=== PATIENT | female | born 1990 | race Asian ===

== ENCOUNTER 2017-01-11 14:49 | Emergency (ER) | payer OTHER ==
[2017-01-11 15:52] VITALS: BP 113/59
--- NOTE | 2017-01-11 16:59 | UC ---
Ear Complaint HPI - HPI Summary HPI Summary: COUGH AND CONGESTION SINCE SEPTEMBER. YESTERDAY DEVELOPED FULLNESS AND PAIN IN LEFT EAR. NO FEVER. NO SORE THROAT. - History of Current Complaint Chief Complaint: UCEar Stated Complaint: EAR PAIN Time Seen by Provider: 01/11/17 15:52 Hx Obtained From: Patient Hx Last Menstrual Period: 12/28/16 Onset/Duration: Gradual Onset, Lasting Weeks, Worse Since - YESTERDAY Severity Initially: Mild Severity Currently: Mild Pain Intensity: 3 Pain Scale Used: 0-10 Numeric Associated Signs/Symptoms: Positive: URI Symptoms - Allergies/Home Medications Allergies/Adverse Reactions: Allergies Allergy/AdvReac Type Severity Reaction Status Date / Time No Known Allergies Allergy Verified 04/28/14 17:10 Home Medications: Home Medications Cholecalciferol [Vitamin D] 1,000 unit PO 01/11/17 [History] Montelukast Sodium TAB* [Singulair TAB*] 10 mg PO DAILY 01/11/17 [History Confirmed 01/11/17] PMH/Surg Hx/FS Hx/Imm Hx Previously Healthy: Yes Endocrine History Of: Denies: Diabetes, Thyroid Disease Cardiovascular History Of: Denies: Cardiac Disorders, Hypertension Respiratory History Of: Reports: Asthma - pt states maybe, Bronchitis Denies: COPD GI/ History Of: Denies: Ulcer Psychological History Of: Reports: Depression - Surgical History Surgical History: None - Family History Known Family History: Negative: Respiratory Disease - Social History Occupation: Student Lives: With Family Alcohol Use: Rare Substance Use Type: None Smoking Status (MU): Never Smoked Tobacco - Immunization History Most Recent Influenza Vaccination: Fall 2012 Most Recent Tetanus Shot: up to date Most Recent Pneumonia Vaccination: never Review of Systems Constitutional: Negative Skin: Negative Eyes: Negative ENT: Ear Ache Respiratory: Cough Cardiovascular: Negative Gastrointestinal: Negative Genitourinary: Negative Motor: Negative Neurovascular: Negative Musculoskeletal: Negative Neurological: Negative Psychological: Negative All Other Systems Reviewed And Are Negative: Yes Physical Exam Triage Information Reviewed: Yes Appearance: Well-Appearing, No Pain Distress, Well-Nourished Vital Signs: Initial Vital Signs Temp 98.7 F 01/11/17 15:48 Pulse 92 01/11/17 15:48 Resp 18 01/11/17 15:48 BP 113/59 01/11/17 15:48 Pulse Ox 99 01/11/17 15:48 Vital Signs Reviewed: Yes Eye Exam: Normal Eyes: Positive: Conjunctiva Clear ENT: Positive: Hearing grossly normal, Pharynx normal, Nasal congestion, TM bulging, TM dull, TM red, Other: - LEFT EAC EDEMA AND ERRETHEMA Dental Exam: Normal Neck exam: Normal Neck: Positive: Supple, Nontender, No Lymphadenopathy Respiratory Exam: Other - COUGH Respiratory: Positive: Chest non-tender, Lungs clear, Normal breath sounds, No respiratory distress, No accessory muscle use Cardiovascular Exam: Normal Cardiovascular: Positive: RRR, No Murmur, Pulses Normal Abdominal Exam: Normal Abdomen Description: Positive: Nontender, No Organomegaly Musculoskeletal Exam: Normal Neurological Exam: Normal Psychological Exam: Normal Skin Exam: Normal Ear Complaint Course/Dx - Differential Dx/Diagnosis Differential Diagnosis/HQI/PQRI: Otitis Externa, Otitis Media, URI Provider Diagnoses: SINUSITIS. LEFT OTITIS SEROUS. LEFT OTITIS EXTERNA Discharge - Discharge Plan Condition: Stable Disposition: HOME Prescriptions: Amoxicillin/Clavulanate TAB* [Augmentin TAB 875*] 875 mg PO BID #20 tab Fluticasone NASAL SPRAY 50MCG* [Flonase NASAL SPRAY 50MCG*] 2 spray BOTH NARES DAILY #1 btl Neomyc/Polym/HC 1% OTIC SUSP* [Cortisporin Otic Susp 1%*] 4 drop LEFT EAR TID # 1 btl Patient Education Materials: Sinusitis (ED), Otitis Externa (ED), Serous Otitis Media (ED) Referrals: Sagrario Arias MD [Primary Care Provider] -
== END 2017-01-11 16:47 | disposition home or self-care (01) ==
LOC: UCEAST 14:49
DX: H60.92 Unspecified otitis externa, left ear (principal); H65.92 Unspecified nonsuppurative otitis media, left ear; J32.9 Chronic sinusitis, unspecified
CPT/HCPCS: 99212; G0463

== ENCOUNTER 2017-01-21 17:15 | Emergency (ER) | payer OTHER ==
[2017-01-21 19:15] VITALS: BP 97/53
--- NOTE | 2017-01-21 22:13 | UC ---
Ear Complaint HPI - HPI Summary HPI Summary: Patient arrives to with CC of ear feeling funny. She states she was treated for ear infection about ten days ago with augmentin. She continues the drops today, as today was the last day of her antibiotics. She comes in today stating still feels fluid in the LEFT ear, and is asking for more antibiotic. She is concerned over a lingering infection. Denies pain, redness, drainage or fever. - History of Current Complaint Chief Complaint: UCEar Stated Complaint: EAR PAIN Time Seen by Provider: 01/21/17 19:17 Hx Obtained From: Patient Hx Last Menstrual Period: 3 weeks ago ?: No Onset/Duration: Gradual Onset, Lasting Weeks Severity Initially: Mild Severity Currently: Mild Pain Intensity: 0 Pain Scale Used: 0-10 Numeric Aggravating Factors: Nothing Alleviating Factors: Nothing Associated Signs/Symptoms: Positive: Foreign Body Sensation - Allergies/Home Medications Allergies/Adverse Reactions: Allergies Allergy/AdvReac Type Severity Reaction Status Date / Time No Known Allergies Allergy Verified 01/21/17 19:10 PMH/Surg Hx/FS Hx/Imm Hx Previously Healthy: Yes Endocrine History Of: Denies: Diabetes, Thyroid Disease Cardiovascular History Of: Denies: Cardiac Disorders, Hypertension Respiratory History Of: Reports: Asthma - pt states maybe, Bronchitis Denies: COPD GI/ History Of: Denies: Ulcer Psychological History Of: Reports: Depression - Surgical History Surgical History: None - Family History Known Family History: Negative: Respiratory Disease - Social History Occupation: Employed Full-time Lives: Alone Alcohol Use: Rare Substance Use Type: None Smoking Status (MU): Never Smoked Tobacco Have You Smoked in the Last Year: No - Immunization History Most Recent Influenza Vaccination: Fall 2012 Most Recent Tetanus Shot: up to date Most Recent Pneumonia Vaccination: never Review of Systems Constitutional: Negative Skin: Negative Eyes: Negative ENT: Other - foreign body sensation and tingling in the left ear Gastrointestinal: Negative Genitourinary: Negative Neurovascular: Negative Musculoskeletal: Negative Psychological: Negative All Other Systems Reviewed And Are Negative: Yes Physical Exam Triage Information Reviewed: Yes Appearance: Well-Appearing, Well-Nourished Vital Signs: Initial Vital Signs Temp 98.6 F 01/21/17 19:12 Pulse 79 01/21/17 19:12 Resp 16 01/21/17 19:12 BP 97/53 01/21/17 19:12 Pulse Ox 98 01/21/17 19:12 Vital Signs Reviewed: Yes Eye Exam: Normal Eyes: Positive: Conjunctiva Clear ENT: Positive: Pharynx normal, TMs normal, Other: - no foreign body noted, no signs of infection Neck exam: Normal Neck: Positive: Supple Respiratory Exam: Normal Respiratory: Positive: Chest non-tender, Lungs clear Cardiovascular Exam: Normal Cardiovascular: Positive: RRR Abdominal Exam: Normal Psychological Exam: Normal Psychological: Positive: Normal Response To Family, Age Appropriate Behavior Skin Exam: Normal Ear Complaint Course/Dx - Course Course Of Treatment: PATIENT REASSURED THERE WAS NO FB OR INFECTION PRESENT IN THE LEFT EAR. ENCOURAGED DISCONTINUATION OF ABX THESE DROPS MAY HAVE BEEN CAUSING THE FLUID LIKE SENSATION IN THE EAR. SHE AGREES AND IS OK WITH DISCHARGE. - Differential Dx/Diagnosis Differential Diagnosis/HQI/PQRI: Cerumen Impaction, Foreign Body Provider Diagnoses: EAR DISCOMFORT Discharge - Discharge Plan Condition: Stable Disposition: HOME Referrals: Sagrario Arias MD [Primary Care Provider] - Additional Instructions: DISCONTINUE DROPS NO SIGNS OF INFECTION USE BENADRYL AT NIGHT X3 NIGHTS. CONTINUE WITH SINGULAIR DURING THE DAY
== END 2017-01-21 20:22 | disposition home or self-care (01) ==
LOC: UCEAST 17:15
DX: H93.8X2 Other specified disorders of left ear (principal); I10 Essential (primary) hypertension; J45.909 Unspecified asthma, uncomplicated; F32.9 Major depressive disorder, single episode, unspecified
CPT/HCPCS: 99211; G0463

== ENCOUNTER 2019-05-21 01:52 | Emergency (ER) | payer OTHER ==
--- NOTE | 2019-05-21 02:34 | ED ---
Throat Pain/Nasal Congestion - HPI Summary HPI Summary: This patient is a 28 year old F presenting to ED with a chief complaint of right eye pain since 28. She feels like there is something sharp and burning in her eye. Patient was hugging her dad when the pain began. She irrigated her eye 3x with no relief. She applied ointment and a hot compress, which also did not help. In the ED room, the pain has decreased slightly from when it started. She states her vision is slightly darker out of the corner of her right eye. Patient does not wear contacts. The patient rates the pain 3/10 in severity. Symptoms aggravated by nothing. Symptoms alleviated by nothing. Patient denies fever. - History of Current Complaint Chief Complaint: EDEyeProblem Hx Obtained From: Patient Onset/Duration: Sudden Onset, Lasting Hours - Since 28, Still Present Severity: Mild - Allergies/Home Medications Allergies/Adverse Reactions: Allergies Allergy/AdvReac Type Severity Reaction Status Date / Time No Known Allergies Allergy Verified 01/21/17 19:10 PMH/Surg Hx/FS Hx/Imm Hx Endocrine/Hematology History: Denies: Hx Diabetes, Hx Thyroid Disease Cardiovascular History: Denies: Hx Hypertension Respiratory History: Reports: Hx Asthma - pt states maybe Denies: Hx Chronic Obstructive Pulmonary Disease (COPD), Other Respiratory Problems/Disorders GI History: Denies: Hx Ulcer Sensory History: Reports: Hx Contacts or Glasses Opthamlomology History: Reports: Hx Contacts or Glasses Psychiatric History: Reports: Hx Depression - Surgical History Surgery Procedure, Year, and Place: Denies Infectious Disease History: No Infectious Disease History: Denies: Hx Hepatitis, Hx Human Immunodeficiency Virus (HIV), Traveled Outside the [place] in Last 30 Days Comment Only: Hx Tuberculosis - poss,latent tb, History Other Infectious Disease - reciently had impentigo - Family History Known Family History: Negative: Respiratory Disease - Social History Alcohol Use: Rare Hx Substance Use: No Substance Use Type: Reports: None Hx Tobacco Use: No Smoking Status (MU): Never Smoked Tobacco Have You Smoked in the Last Year: No Review of Systems Negative: Fever Eyes: Other - Sharp eye pain All Other Systems Reviewed And Are Negative: Yes Physical Exam - Summary Physical Exam Summary: Appearance: Well-appearing, Well-nourished, lying in bed comfortable Skin: Warm, dry, no obvious rash Eyes: right eye appears to have normal acuity, visual ramos are intact, there is no inflammation or conjunctivitis, PERRL, extraocular movements intact, on exam no foreign body seen, anterior chamber appeared clear ENT: mucous membranes moist Neck: deferred Respiratory: No signs of respiratory distress Cardiovascular: Appears well perfused, pulses are nml Abdomen: deferred Musculoskeletal: Moving all 4 extremities without obvious discomfort Neurological: Awake and alert, mentation is normal, speech is fluent and appropriate Psychiatric: affect is normal, does not appear anxious or depressed Triage Information Reviewed: Yes Vital Signs On Initial Exam: Initial Vitals Temp Pulse Resp BP Pulse Ox 97.4 F 93 18 118/78 98 05/21/19 01:53 05/21/19 01:53 05/21/19 01:53 05/21/19 01:53 05/21/19 01:53 Vital Signs Reviewed: Yes Diagnostics - Vital Signs Vital Signs Temp Pulse Resp BP Pulse Ox 05/21/19 01:53 97.4 F 93 18 118/78 98 - Laboratory Lab Statement: Any lab studies that have been ordered have been reviewed, and results considered in the medical decision making process. EENT Course/Dx - Course Course Of Treatment: This patient is a 28 year old F presenting to ED with a chief complaint of right eye pain since 28. Eye exam revealed right eye appears to have normal acuity, visual ramos are intact, there is no inflammation or conjunctivitis, PERRL, extraocular movements intact, on exam no foreign body seen, anterior chamber appeared clear. Patient will be discharged home with dx of foreign body to the eye. Patient understands and agrees with this plan. - Diagnoses Provider Diagnoses: Foreign body of external eye Discharge - Sign-Out/Discharge Documenting (check all that apply): Patient Departure - Discharge Patient Received Moderate/Deep Sedation with Procedure: No - Discharge Plan Condition: Stable Disposition: HOME Patient Education Materials: Eye Foreign Body (ED) Referrals: Mayank Guevara MD [Medical Doctor] - Additional Instructions: I suspect you had a foreign body in the eye that the eye was able to get rid of. When this happens there is sometimes a small scratch or abrasion that can cause some residual irritation. On my exam tonight I do not see a foreign body or any sign of significant injury to the eye, and I suspect it should feel a lot better by tomorrow. For now no specific treatment is required. If you still feel some residual irritation by Thursday I would recommend consulting an transcription specialist such as Dr. Guevara or one of his colleagues, for a more thorough exam in their office. - Billing Disposition and Condition Condition: STABLE Disposition: Home - Attestation Statements Document Initiated by Cecilio: Yes Documenting Scribe: Augustus Rivera Provider For Whom Cecilio is Documenting (Include Credential): Jerardo Lima MD Scribe Attestation: I, Augustus Rivera, scribed for Jerardo Lima MD on 05/22/19 at 0422. Scribe Documentation Reviewed: Yes Provider Attestation: The documentation as recorded by the Augustus medel accurately reflects the service I personally performed and the decisions made by me, Jerardo Lima MD Status of Scribe Document: Viewed
[2019-05-21 02:55] VITALS: BP 101/63
== END 2019-05-21 02:53 | disposition home or self-care (01) ==
LOC: ED 01:52
DX: T15.91XA Foreign body on external eye, part unspecified, right eye, initial encounter (principal); X58.XXXA Exposure to other specified factors, initial encounter; Y92.9 Unspecified place or not applicable
CPT/HCPCS: 99282